=== PATIENT | female | born 1945 | race Caucasian/White ===

== ENCOUNTER 2016-11-30 07:29 | Emergency (ER) | payer MEDICARE, BC ==
[2016-11-30] MEDS ORDERED: Acetaminophen/oxyCODONE 325-5 MG Tab PO ONE ×2 (08:17→13:48)
[2016-11-30] MEDS ORDERED: Gabapentin 100 MG Cap PO ONE ×3 (08:17→10:45)
--- NOTE | 2016-11-30 08:23 | EDM.PDOC ---
ED HPI GENERAL MEDICAL PROBLEM - General Chief Complaint: Neck Problem Stated Complaint: NECK PAIN Time Seen by Provider: 11/30/16 08:10 Source of Information: Reports: Patient, Old Records, RN History Limitations: Reports: No Limitations - History of Present Illness INITIAL COMMENTS - FREE TEXT/NARRATIVE: 71 yo female presents with neck pain and radiation down both arms. No recent injury. Has had some chronic neck pain. The radiation is new. Has been going to a chiropractor without benefit. Lives here from November 16 to April and has no local doctor, all her providers are in [place]. Has stage IV renal failure. Has more urinary incontinence lately with a hx of UTI's. No fever. Here with her . Onset: Gradual Duration: Day(s): Location: Reports: Neck Quality: Reports: Ache, Other (shooting, electrical shocks down her arms bilaterally. 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) Neck Pain Score (Numeric/FACES): 0 - Related Data Allergies Allergy/AdvReac Type Severity Reaction Status Date / Time No Known Allergies Allergy Verified 11/30/16 07:46 Home Meds: Home Meds Amitriptyline [Elavil] 10 mg PO QPM 05/04/15 [History] Aspirin [Halfprin] 325 mg PO QPM 05/04/15 [History] Carboxymethyl/Glycerin/Poly80 [Refresh Optive Advanced Drops] 1 drop TOP Q2H [History] Furosemide 40 mg PO BID 05/04/15 [History] Insulin Glarg,Human.Rec.Analog [Lantus Solostar] 2 - 6 units SUBCUT BEDTIME [History] Insulin Glarg,Human.Rec.Analog [Lantus Solostar] 8 unit SUBCUT QAM 05/04/15 [ History] Insulin Lispro [HumaLOG] 0 - 14 units SUBCUT ASDIRECTED PRN 05/04/15 [History] Levothyroxine 125 mcg PO DAILY 05/04/15 [History] Loteprednol [Lotemax 0.5% Ophth Soln] 1 drop TOP BID 05/04/15 [History] Metoprolol Tartrate 50 mg PO DAILY 05/04/15 [History] Metoprolol Tartrate 100 mg PO BEDTIME 05/04/15 [History] Multivit-Min/FA/Lycopene/Lut [Centrum Silver Tablet] 1 tab PO ACBREAKFAST [History] [place]-3S/DHA/Epa/Fish Oil/D3 [Dry Eye [place] Benefits Softgel] 1 cap PO QID 05/04 [History] Proazosin 1 mg PO BID 05/04/15 [History] Sevelamer Carbonate [Renvela] 800 mg PO ACDINNER 05/04/15 [History] amLODIPine Besylate [Amlodipine Besylate] 10 mg PO QPM 05/04/15 [History] atorvaSTATin [Lipitor] 80 mg PO QAM 05/04/15 [History] cloNIDine HCl [Clonidine HCl ER] 0.1 mg PO BID 05/04/15 [History] cycloSPORINE [Restasis] 2 drop TOP BID 05/04/15 [History] hydrALAZINE [Apresoline] 25 mg PO BID 04/15/16 [History] Acetaminophen [Tylenol Extra Strength] 1,000 mg PO ASDIRECTED PRN 11/30/16 [ History] Epoetin Tuan [Procrit] 2,000 units SQ ASDIRECTED PRN 11/30/16 [History] Esomeprazole Magnesium [Nexium] 40 mg PO ASDIRECTED 11/30/16 [History] Loteprednol [Lotemax 0.5% Ophth Soln] 1 drop EYEBOTH BID 11/30/16 [History] Mineral Oil/Petrolatum,White [Refresh P.M.] 3.5 gm EYEBOTH QPM 11/30/16 [History ] Past Medical History HEENT History: Reports: Cataract, Hard of Hearing, Other (See Below) Other HEENT History: C/0 sore throat sttes difficultly swallowing C/O L side neck pain. 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: Musculoskeletal History: Reports: Other (See Below) Other Musculoskeletal History: C1 fracture 2013 Neurological History: Reports: CVA, Headaches, Chronic, Speech Problems Other Neuro History: two strokes in 2014 Endocrine/Metabolic History: Reports: Diabetes, Type I, Hypothyroidism Hematologic History: Reports: Anemia, Blood Transfusion(s) - Infectious Disease History Infectious Disease History: Reports: Chicken Pox, Measles, Mumps - Past Surgical History HEENT Surgical History: Reports: Cataract Surgery, Eye Surgery, Laser Surgery Cardiovascular Surgical History: Reports: Coronary Artery Bypass Female Surgical History: Reports: Section Musculoskeletal Surgical History: Reports: Shoulder Surgery Social & Family History - Family History HEENT: Reports: None Cardiac: Reports: None Respiratory: Reports: TB Other Respiratory Family Hisory: Grandmother had TB and lung resection GI: Reports: None : Reports: None OBGYN: Reports: None Musculoskeletal: Reports: None Neurological: Reports: None Psychiatric: Reports: None Endocrine/Metabolic: Reports: None Hematologic: Reports: None Oncologic: Reports: Breast Other Oncologic Family History: Mother passed from breast cancer - Tobacco Use Smoking Status *Q: Never Smoker Years of Tobacco use: 30 Used Tobacco, but Quit: Yes Month Tobacco Last Used: 10 years ago Second Hand Smoke Exposure: No - Caffeine Use Caffeine Use: Reports: Coffee Other Caffeine Use: 2 cups in the morning - Alcohol Use Days Per Week of Alcohol Use: 0 - Recreational Drug Use Recreational Drug Use: No - Living Situation & Occupation Living situation: Reports: , with Spouse Occupation: Disabled ED ROS GENERAL - Review of Systems Review Of Systems: See Below Constitutional: Reports: No Symptoms HEENT: Reports: No Symptoms Respiratory: Reports: No Symptoms Cardiovascular: Reports: No Symptoms GI/Abdominal: Reports: No Symptoms : Reports: Incontinence Musculoskeletal: Reports: Neck Pain Skin: Reports: No Symptoms Neurological: Reports: Other (electrical shocks down arms.) ED EXAM, UPPER BACK/NECK PAIN - Physical Exam Exam: See Below Exam Limited By: No Limitations General Appearance: Alert, WD/WN, No Apparent Distress Ears Exam: Normal External Exam, Normal Canal, Hearing Grossly Normal Nose Exam: Normal Inspection, Normal Mucousa, No Blood Throat/Mouth Exam: Normal Lips, Normal Oropharynx, Normal Voice, No Airway Compromise Head Exam: Atraumatic, Normocephalic Neck Exam: Normal Alignment, Normal Inspection, Painful Range of Motion Cardiovascular/Respiratory: Regular Rate, Rhythm, No M/R/G, Normal Peripheral Pulses, No Respiratory Distress GI/Abdominal: Normal Bowel Sounds, Soft, Non-Tender, No Distention Back Exam: Normal Inspection, Vertebral Tenderness Extremities: Normal Inspection, Non-Tender, No Pedal Edema Neurologic: No Motor/Sensory Deficits, Normal Mood/Affect, Oriented x 3 Psychiatric: Normal Affect, Normal Mood Skin Exam: Normal Color, Warm/Dry Lymphatic: No Adenopathy Course - Vital Signs Text/Narrative:: gabapentin 100 mg po, Percocet 1 po-partial relief, gabapentin 100 mg po- feeling better MRI of cervical spine-C3C4 and C5C6 degenerative changes with central stenosis, subluxation Accucheck-76, got fed lunch after this Last Recorded V/S: Last Vital Signs Temp 36.2 C 11/30/16 07:47 Pulse 58 L 11/30/16 13:03 Resp 14 11/30/16 13:03 BP 156/66 H 11/30/16 13:03 Pulse Ox 99 11/30/16 13:03 - Orders/Labs/Meds Orders: Active Orders 24 hr Category Date Time Status Accu Check [Blood Glucose Check, Bedside] [RC] ONETIME Care 11/30/16 10:16 Inactive Cervical Spine Comp wo Cont [MR] Stat Exams 11/30/16 08:27 Taken UA W/MICROSCOPIC [URIN] Stat Lab 11/30/16 13:04 Received Meds: Medications Discontinued Medications Generic Name Dose Route Start Last Admin Trade Name Citlaly PRN Reason Stop Dose Admin Gabapentin 100 mg 11/30/16 08:17 11/30/16 08:39 Neurontin PO 11/30/16 08:18 100 mg ONETIME ONE Administration Gabapentin 200 mg 11/30/16 10:00 11/30/16 10:53 Neurontin PO 11/30/16 10:01 Not Given ONETIME ONE Gabapentin 100 mg 11/30/16 10:45 11/30/16 10:52 Neurontin PO 11/30/16 10:46 100 mg ONETIME ONE Administration Oxycodone/Acetaminophen 1 tab 11/30/16 08:17 11/30/16 08:39 Percocet 325-5 Mg PO 11/30/16 08:18 1 tab ONETIME ONE Administration Departure - Departure Time of Disposition: 13:08 Disposition: Home, Self-Care 01 Condition: fair Clinical Impression: Cervical radiculopathy - Discharge Information Forms: ED Department Discharge - My Orders Last 24 Hours: My Active Orders 11/30/16 08:27 Cervical Spine Comp wo Cont [MR] Stat 11/30/16 10:16 Accu Check [Blood Glucose Check, Bedside] [RC] ONETIME 11/30/16 13:04 UA W/MICROSCOPIC [URIN] Stat - Assessment/Plan Last 24 Hours: My Active Orders 11/30/16 08:27 Cervical Spine Comp wo Cont [MR] Stat 11/30/16 10:16 Accu Check [Blood Glucose Check, Bedside] [RC] ONETIME 11/30/16 13:04 UA W/MICROSCOPIC [URIN] Stat
[2016-11-30 13:05] VITALS: BP 156/66
--- NOTE | 2016-11-30 13:23 | MR ---
Cervical Spine Comp wo Cont HISTORY: neck pain with shooting pains down both arms. Multiplanar sequences of the cervical spine were obtained. There are no prior exams for comparison. FINDINGS: There is reversal the normal cervical lordotic curvature centered at about the C4-5 level. At C3-4 there is approximately 5 mm of anterior subluxation. [id number] narrowing of the in tervertebral disc is present at this level. There is also moderate narrowing at C4-5. Prominent narr owing of the disc space is present at C5-6 and C6-7. Small anterior aspects are noted diffusely. Cer vical basilar relationships are satisfactory. C2-3: No disc bulge or protrusion is identified. Moderate to severe facet arthropathy is present on the left. No central or foraminal stenosis is seen at the sella. C3-4: Along with the anterior subluxation there is mild posterior bulging of the disc. No focal prot rusion is seen. Facet arthropathy is present bilaterally, greater on the left. There is severe centr al spinal stenosis in the AP diameter at this level. There may be very mild increased T2 signal in t he cervical cord at this level suggesting mild edema. Prominent foraminal stenosis is present bilate rally. C4-5: Moderate diffuse posterior disc osteophyte complex relation is present. There is also a small, wide based right paracentral disc protrusion. This reaches but does not efface the cervical cord. M ild foraminal stenosis is present bilaterally. C5-6: Very mild posterior disc osteophyte complex formation is present. There is mild to moderate ce ntral spinal stenosis at this level. No foraminal stenosis is seen. C6-7: Mild posterior disc osteophyte complex formation is present. There is no central or foraminal stenosis. Mild facet arthropathy is present on the left. C7-T1: No disc bulge or protrusion is identified. There is no central or foraminal stenosis. IMPRESSION: 1. Degenerative and spondylotic changes cervical spine as above. Degenerative disc changes are most prominent at C5-6 and C6-7. There is reversal of the normal cervical lordotic curvature centered abo ut the C4-5 level. 2. There is about 5 mm of anterior subluxation at C3-4. Subluxation along with bulging disc and hype rtrophic changes results in severe spinal stenosis in the AP diameter at this level along with bilat eral foraminal stenosis. 3. Bulging disc and hypertrophic changes cause mild to moderate central spinal stenosis at C5-6. 4. Along with the bulging disc at C4-5 there is a small right paracentral disc protrusion. Bilateral foraminal stenosis is also present at C4-5.
== END 2016-11-30 14:30 | disposition home or self-care (01) ==
LOC: JP.ED 07:29
DX: M54.12 Radiculopathy, cervical region (principal); N18.4 Chronic kidney disease, stage 4 (severe); E03.9 Hypothyroidism, unspecified; E10.319 Type 1 diabetes mellitus with unspecified diabetic retinopathy without macular edema; Z98.49 Cataract extraction status, unspecified eye; Z95.1 Presence of aortocoronary bypass graft; Z98.890 Other specified postprocedural states; Z86.718 Personal history of other venous thrombosis and embolism; Z79.82 Long term (current) use of aspirin; Z79.4 Long term (current) use of insulin; Z79.899 Other long term (current) drug therapy
CPT/HCPCS: 72141; 81001; 82962; 99284; A9270; 99283

== ENCOUNTER 2017-01-13 01:16 | Emergency (ER) | payer MEDICARE, BC ==
--- NOTE | 2017-01-13 01:50 | EDM.PDOC ---
[id number]: [facility] Time Seen by Provider: 01/13/17 01:25 Source of Information: Reports: Patient, EMS, RN History Limitations: Reports: No Limitations - History of Present Illness INITIAL COMMENTS - FREE TEXT/NARRATIVE: 71-year-old female who is currently residing in a care home recovering from neck surgery was found to be unresponsive, dilated pupils and a "glazed look". She is a diabetic and receives insulin but her glucose was not checked. It was felt she could be having a stroke or something more serious so EMS was called. On arrival EMS checked her glucose and it was 39, they started an IV and started running D10. A repeat glucose check prior to entering the hospital was at 79 and the patient was awake and talking and asking where she was out. After the nurse evaluation she was answering questions appropriately, had no complaints, and understood completely what had happened. When her records were reviewed it was noticed she had a chemistry profile and CBC just drawn yesterday morning, she does have some significant abnormalities of renal function and hemoglobin but they're consistent with past readings and levels over the past 2 years. Onset: Unknown/Unsure Severity: Moderate Associated Symptoms: Reports: Confusion, Other (Decreased responsiveness) - Related Data Allergies Allergy/AdvReac Type Severity Reaction Status Date / Time No Known Allergies Allergy Verified 11/30/16 07:46 Home Meds: Home Meds Amitriptyline [Elavil] 10 mg PO QPM 05/04/15 [History] Aspirin [Halfprin] 325 mg PO QPM 05/04/15 [History] Furosemide 40 mg PO DAILY 05/04/15 [History] Insulin Glarg,Human.Rec.Analog [Lantus Solostar] 3 units SUBCUT BEDTIME [History] Insulin Glarg,Human.Rec.Analog [Lantus Solostar] 5 unit SUBCUT QAM 05/04/15 [ History] Levothyroxine 125 mcg PO DAILY 05/04/15 [History] Loteprednol [Lotemax 0.5% Ophth Soln] 1 drop TOP BID 05/04/15 [History] Multivit-Min/FA/Lycopene/Lut [Centrum Silver Tablet] 1 tab PO ACBREAKFAST [History] Proazosin 1 mg PO BID 05/04/15 [History] amLODIPine Besylate [Amlodipine Besylate] 10 mg PO QPM 05/04/15 [History] atorvaSTATin [Lipitor] 80 mg PO QAM 05/04/15 [History] cloNIDine HCl [Clonidine HCl ER] 0.1 mg PO BID 05/04/15 [History] cycloSPORINE [Restasis] 2 drop TOP BID 05/04/15 [History] hydrALAZINE [Apresoline] 25 mg PO BID 04/15/16 [History] Acetaminophen [Tylenol Extra Strength] 1,000 mg PO ASDIRECTED PRN 11/30/16 [ History] Esomeprazole Magnesium [Nexium] 40 mg PO ASDIRECTED 11/30/16 [History] Loteprednol [Lotemax 0.5% Ophth Soln] 1 drop EYEBOTH BID 11/30/16 [History] Mineral Oil/Petrolatum,White [Refresh P.M.] 3.5 gm EYEBOTH QPM 11/30/16 [History ] Acetaminophen/HYDROcodone [[place] 325-7.5 MG] 1 tab PO Q4H 01/13/17 [History] Calcium Carbonate/Vitamin D3 [Calcium 600-Vit D3 400 Tablet] 1 tab PO DAILY [History] Carvedilol 25 mg PO BID 01/13/17 [History] Insulin Lispro [HumaLOG] 2 - 8 unit SUBCNJ TID 01/13/17 [History] Polyethylene Glycol 3350 [MiraLAX] 17 gm PO DAILY 01/13/17 [History] Sennosides [Senna] 2 tab PO BID 01/13/17 [History] Sevelamer Carbonate [Renvela] 800 mg PO DAILY 01/13/17 [History] Ubidecarenone [Co Q-10] 200 mg PO DAILY 01/13/17 [History] Vitamin B Complex & Vit C No.4 [Super B Complex] 1 tab PO DAILY 01/13/17 [ History] Past Medical History HEENT History: Reports: Cataract, Hard of Hearing, Other (See Below) Other HEENT History: C/0 sore throat sttes difficultly swallowing C/O L side neck pain. 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: Musculoskeletal History: Reports: Other (See Below) Other Musculoskeletal History: C1 fracture 2013 Neurological History: Reports: CVA, Headaches, Chronic, Speech Problems Other Neuro History: two strokes in 2014 Endocrine/Metabolic History: Reports: Diabetes, Type I, Hypothyroidism Hematologic History: Reports: Anemia, Blood Transfusion(s) - Infectious Disease History Infectious Disease History: Reports: Chicken Pox, Measles, Mumps - Past Surgical History HEENT Surgical History: Reports: Cataract Surgery, Eye Surgery, Laser Surgery Cardiovascular Surgical History: Reports: Coronary Artery Bypass Female Surgical History: Reports: Section Musculoskeletal Surgical History: Reports: Shoulder Surgery Social & Family History - Family History HEENT: Reports: None Cardiac: Reports: None Respiratory: Reports: TB Other Respiratory Family Hisory: Grandmother had TB and lung resection GI: Reports: None : Reports: None OBGYN: Reports: None Musculoskeletal: Reports: None Neurological: Reports: None Psychiatric: Reports: None Endocrine/Metabolic: Reports: None Hematologic: Reports: None Oncologic: Reports: Breast Other Oncologic Family History: Mother passed from breast cancer - Tobacco Use Smoking Status *Q: Never Smoker Years of Tobacco use: 30 Used Tobacco, but Quit: Yes Month Tobacco Last Used: 10 years ago Second Hand Smoke Exposure: No - Caffeine Use Caffeine Use: Reports: Coffee Other Caffeine Use: 2 cups in the morning - Alcohol Use Days Per Week of Alcohol Use: 0 - Recreational Drug Use Recreational Drug Use: No - Living Situation & Occupation Living situation: Reports: , with Spouse Occupation: Disabled ED ROS GENERAL - Review of Systems Review Of Systems: See Below Constitutional: Denies: Fever Respiratory: Denies: Shortness of Breath, Cough Cardiovascular: Denies: Chest Pain GI/Abdominal: Denies: Nausea, Vomiting Musculoskeletal: Reports: Neck Pain (Patient is wearing a brace from a recent neck surgery) Neurological: Reports: Confusion, Other (Decreased responsiveness and confusion were present but are now resolved) ED EXAM GENERAL NO PERIP PULSE - Physical Exam Exam: See Below Exam Limited By: No Limitations General Appearance: Alert, No Apparent Distress Eye Exam: Bilateral Eye: EOMI, PERRL Respiratory/Chest: No Respiratory Distress, Lungs Clear Cardiovascular: Regular Rate, Rhythm GI/Abdominal: Soft, Non-Tender Extremities: Other (She does have several superficial bruises of the forearms) Neurological: Alert, Oriented, No Motor/Sensory Deficits Psychiatric: Normal Affect, Normal Mood Skin Exam: Warm, Dry Course - Vital Signs Last Recorded V/S: Last Vital Signs Temp 97.5 F 01/13/17 07:45 Pulse 61 01/13/17 07:45 Resp 12 01/13/17 07:45 BP 140/76 01/13/17 07:45 Pulse Ox 100 01/13/17 07:45 - Re-Assessments/Exams Free Text/Narrative Re-Assessment/Exam: 01/13/17 01:49 Labs were not repeated as they were just drawn less than 24 hours ago. The D10 was continued. 01/13/17 01:51 A total of 250 mL of the D10 was infused then stopped. No further treatment was given. Arrangements were made for the patient to return to the care home. 01/13/17 04:40 A repeat glucose at 4 AM was 93. No further treatment was needed and patient will be discharged when transportation is available. Departure - Departure Time of Disposition: 08:38 Disposition: DC/Tfer to [facility] Condition: Good Clinical Impression: Hypoglycemia - Discharge Information Instructions: Insulin Treatment for Diabetes Referrals: PCP,None [Primary Care Provider] - Forms: ED Department Discharge Care Plan Goals: Resume regular medications, consider reducing long-acting insulin if symptoms recur.
[2017-01-13 07:46] VITALS: BP 140/76
== END 2017-01-13 08:38 ==
LOC: JP.ED 01:16
DX: E10.649 Type 1 diabetes mellitus with hypoglycemia without coma (principal); E10.22 Type 1 diabetes mellitus with diabetic chronic kidney disease; N18.4 Chronic kidney disease, stage 4 (severe); Z86.73 Personal history of transient ischemic attack (TIA), and cerebral infarction without residual deficits; Z86.718 Personal history of other venous thrombosis and embolism; Z98.49 Cataract extraction status, unspecified eye; Z95.1 Presence of aortocoronary bypass graft; Z98.890 Other specified postprocedural states; Z79.899 Other long term (current) drug therapy; Z79.4 Long term (current) use of insulin; Z79.82 Long term (current) use of aspirin
CPT/HCPCS: 82962; 99283; 99285